=== PATIENT | female | born 1995 | race African-American/Black ===

== ENCOUNTER 2019-02-09 04:05 | Emergency (ER) | payer SELFPAY ==
[~2019-02-09] VITALS: Ht 172.7 cm; Wt 63.5 kg
[2019-02-09] MEDS ORDERED: ALBUTEROL SULF 2.5 MG/0.5ML(0.5%) NEB SOLN HHN STA (04:20)
[2019-02-09] MEDS ORDERED: IPRATROPIUM BROM 0.5 MG/2.5ML INH SOL NEB ONE (04:30)
[2019-02-09] MEDS ORDERED: LORazepam 2MG/ML-1ML VIAL IV ONE (04:30)
[2019-02-09 05:23] LABS: Basophils # (auto) 0 uL; Eosinophils # (auto) 0.3 uL; Hemoglobin 13.2 g/dL (12.2-16.2); Monocytes # (auto) 0.3 uL; Nucleated Red Blood Cells % 0.1 %; Red Blood Cells 5.61 10^6/uL (4.0-5.20); Red Cell Distribution Width 17.4 % (11.8-14.3); White Blood Cell 3.7 10^3/uL (4.4-10.8)
[2019-02-09 05:24] LABS: Basophils % (auto) 0.6 % (0.0-2.0); Eosinophils % (auto) 9.1 % (0.0-7.0); Hematocrit 41.3 % (36.0-46.0); Lymphocytes # (auto) 1.5 uL; Lymphocytes % (auto) 40.5 % (10.0-50.0); Mean Corpuscular Hemoglobin 23.6 pg (28.0-32.0); Mean Corpuscular Volume 73.6 fL (80.0-100.0); Monocytes % (auto) 7.9 % (0.0-12.0); Neutrophils # (auto) 1.5 uL; Neutrophils % (auto) 41.9 % (37.0-80.0); Platelet Count (auto) 291 10^3/uL (140-450)
[2019-02-09 05:41] LABS: Albumin 3.9 g/dL (3.4-5.0); Calcium 8.4 mg/dL (8.5-10.1); Potassium 3.2 mmol/L (3.5-5.1)
[2019-02-09 05:46] LABS: BUN/Creatinine Ratio 8.3; Bilirubin, Total 0.3 mg/dL (0.2-1.0); Total Protein 7.3 g/dL (6.4-8.2)
[2019-02-09] MEDS ORDERED: SODIUM CHLORIDE 0.9% 1,000 ML IV ONE (06:15)
[2019-02-09 07:18] VITALS: BP 88/48
[2019-02-09] MEDS ORDERED: methylPREDNISolone SOD SUCC 125 MG/2 ML VL IV ONE (08:00)
== END 2019-02-09 08:53 | disposition home or self-care (01) ==
LOC: EDBD 04:05 → ER 04:05
DX: J45.909 Unspecified asthma, uncomplicated (principal); F10.920 Alcohol use, unspecified with intoxication, uncomplicated; Y90.6 Blood alcohol level of 120-199 mg/100 ml
CPT/HCPCS: 36415; 71045; 80053; 80320; 85025; 96374; 96375; 99284; J2060; J2930; J7030

== ENCOUNTER 2023-01-23 18:06 | Emergency (ER) | payer MEDICAID ==
[~2023-01-23] VITALS: Ht 160 cm; Wt 61.6 kg
[2023-01-23] MEDS ORDERED: CEPH-510 PO (20:07)
[2023-01-23] MEDS ORDERED: ACET-1158 PO (20:07)
[2023-01-23] MEDS ORDERED: LIDOCAINE 1% HCL (LOCAL ANESTH.) INJ 20ML MDV ID ONE (20:15)
[2023-01-23 21:13] VITALS: BP 112/72
== END 2023-01-23 21:46 | disposition home or self-care (01) ==
LOC: ER 18:08
DX: S01.312A Laceration without foreign body of left ear, initial encounter (principal); J45.909 Unspecified asthma, uncomplicated; W10.8XXA Fall (on) (from) other stairs and steps, initial encounter; Y93.01 Activity, walking, marching and hiking; Y92.89 Other specified places as the place of occurrence of the external cause; Y99.8 Other external cause status
CPT/HCPCS: 12013; 70450; 99284; J2001

== ENCOUNTER 2023-01-28 13:41 | Emergency (ER) | payer MEDICAID ==
[~2023-01-28] VITALS: Ht 152.4 cm; Wt 62.9 kg
[~2023-01-28 13:41] MED LIST: ACET-1158 PO; CEPH-510 PO
[2023-01-28 14:29] VITALS: BP 112/75
== END 2023-01-28 14:35 | disposition home or self-care (01) ==
LOC: ER 13:41
DX: S01.312D Laceration without foreign body of left ear, subsequent encounter (principal); J45.909 Unspecified asthma, uncomplicated; Z79.899 Other long term (current) drug therapy; X58.XXXD Exposure to other specified factors, subsequent encounter

== ENCOUNTER 2024-04-22 22:48 | Emergency (ER) | payer MEDICAID ==
[~2024-04-22] VITALS: Ht 160 cm; Wt 61.0 kg
[~2024-04-22 22:48] MED LIST changes: -ACET-1158 PO; +ACET500T58 PO
[2024-04-22 23:10] VITALS: BP 118/86; PULSE 112; RESP 20; O2SAT 99
== END 2024-04-22 23:13 | disposition left against medical advice (07) ==
LOC: ER 22:48
DX: S01.83XA Puncture wound without foreign body of other part of head, initial encounter (principal); Z53.21 Procedure and treatment not carried out due to patient leaving prior to being seen by health care provider; W45.8XXA Other foreign body or object entering through skin, initial encounter; Y93.89 Activity, other specified; Y92.89 Other specified places as the place of occurrence of the external cause; Y99.8 Other external cause status